=== PATIENT | male | born 1940 | race Caucasian/White ===

== ENCOUNTER 2018-08-14 21:44 | Inpatient (IN) | payer OTHER, MEDICARE ==
[~2018-08-14] VITALS: Ht 175.3 cm; Wt 120.5 kg
[~2018-08-14 21:44] MED LIST: HYDACE5 PO; LO-DOSE ASPIRIN81 MG PO
[2018-08-14 22:38] LABS: BASOPHILS ABSOLUTE AUTO 0.04 K/mm3 (0.00-0.23); BASOPHILS PERCENT AUTO 1 % (0-2); EOSINOPHILS ABSOLUTE AUTO 0.09 K/mm3 (0.00-0.68); EOSINOPHILS PERCENT AUTO 2 % (0-6); Hematocrit 50.3 % (37.0-53.0); Hemoglobin 15.6 g/dL (13.5-17.5); IMMATURE GRAN ABSOLUTE AUTO 0.02 K/mm3 (0.00-0.10); IMMATURE GRAN PERCENT AUTO 0 % (0-1); LYMPHOCYTES ABSOLUTE AUTO 1.85 K/mm3 (0.84-5.20); LYMPHOCYTES PERCENT AUTO 30 % (21-46); MONOCYTES ABSOLUTE AUTO 0.37 K/mm3 (0.16-1.47); MONOCYTES PERCENT AUTO 6 % (4-13); Mean Corpuscular HGB 28.1 pg (26.0-34.0); Mean Corpuscular Volume 91 fL (80-100); NEUTROPHILS ABSOLUTE AUTO 3.71 K/mm3 (1.96-9.15); NEUTROPHILS PERCENT AUTO 61 % (41-73); Platelet Count 227 K/mm3 (150-400); RDW Coefficient Variation 15.6 % (11.7-14.2); RDW Standard Deviation 52.4 fL (35.1-46.3); Red Blood Cell Count 5.55 M/mm3 (4.30-5.90); White Blood Cell Count 6.08 K/mm3 (4.00-11.30)
[2018-08-14 23:02] LABS: Albumin, Blood 3.9 g/dL (3.4-5.0); Albumin/Globulin Ratio 1.1 (0.8-1.8); Bilirubin, Total 0.3 mg/dL (0.1-1.0); Bun/Creatinine Ratio 18.6 (12.0-20.0); Calcium, Blood 8.8 mg/dL (8.5-10.1); Creatinine, Blood 1.29 mg/dL (0.60-1.20); Globulin, Blood 3.7 g/dL (2.2-4.0); Potassium, Blood 3.9 mmol/L (3.5-5.5); Total Protein, Blood 7.6 g/dL (6.4-8.2); Troponin I 0.032 ng/mL (0.000-0.040)
[2018-08-15 07:21] LABS: Source, Urine Clean Catch
[2018-08-15 07:33] LABS: Appearance, Urine Clear (Clear); Bilirubin, Urine Neg (Neg); Blood, Urine Neg (Neg); Color, Urine Yellow (P-Yellow); Glucose Qualitative, Urine Neg (Neg); Ketones, Urine 1+ (Neg); Leukocyte Esterase, Urine Neg (Neg); Nitrite, Urine Neg (Neg); Protein, Urine 1+ (Neg); Specific Gravity, Urine 1.015 (1.003-1.022); Urobilinogen, Urine NORM (Normal)
[2018-08-15 07:57] LABS: U Amphetamine Screen Not Detected; U Barbituate Screen Not Detected; U Benzodiazapine Screen Not Detected; U Buprenorphine Screen Not Detected; U Cannabinoids Screen Not Detected; U Cocaine Screen Not Detected; U Methadone Screen Not Detected; U Methamphetamine Screen Not Detected; U Opiates Screen Not Detected; U Oxycodone Screen Not Detected; U Phencyclidine Screen Not Detected; U Propoxyphene Screen Not Detected
[2018-08-15 08:04] LABS: Hematocrit 50.7 % (37.0-53.0); Hemoglobin 16.2 g/dL (13.5-17.5); Mean Corpuscular HGB 28.6 pg (26.0-34.0); Mean Corpuscular Volume 89 fL (80-100); Platelet Count 238 K/mm3 (150-400); RDW Coefficient Variation 15.5 % (11.7-14.2); RDW Standard Deviation 50.8 fL (35.1-46.3); Red Blood Cell Count 5.67 M/mm3 (4.30-5.90); White Blood Cell Count 6.26 K/mm3 (4.00-11.30)
[2018-08-15 08:07] LABS: Red Blood Cells, Urine 0-2 /hpf (0-2); Squamous Epithelial Cells Few /hpf (Few)
[2018-08-15 08:08] LABS: CPK Creatine Kinase 155 U/L (39-308); Troponin I 0.021 ng/mL (0.000-0.040)
[2018-08-15 08:08] LABS: Bacteria Rare /hpf
[2018-08-15 08:41] LABS: Anion Gap 12 mmol/L (6-16); Blood Urea Nitrogen 19 mg/dL (8-24); CO2, Blood 20 mmol/L (21-32); Calcium, Blood 8.8 mg/dL (8.5-10.1); Chloride, Blood 113 mmol/L (98-108); Glomerular Filtration Rate >60 (60-); Glucose, Blood 94 mg/dL (70-99); Sodium, Blood 145 mmol/L (136-145)
[2018-08-15 08:42] LABS: Alanine Aminotransfer (ALT/SGP 22 U/L (12-78); Albumin, Blood 3.8 g/dL (3.4-5.0); Alk Phos 60 U/L (50-136); Aspartate Aminotrans (AST/SGOT 18 U/L (12-37); Bilirubin, Total 0.5 mg/dL (0.1-1.0); Globulin, Blood 3.8 g/dL (2.2-4.0); Total Protein, Blood 7.6 g/dL (6.4-8.2)
--- NOTE | 2018-08-15 10:08 | NUR ---
PATIENT ARRIVED TO ICU ROOM 7 AT 1008 VIA FLOOR BED FROM ED, REPORT WAS CALLED BY DELMI BUTTS, PRIOR TO TRANSFER, PATIENT IS ALERT AND ORIENTED, ABLE TO AMBULATE FROM FLOOR BED TO ICU BED, REPORTED NO SOB, PLACED ON MONITOR, DENIES PAIN, AFEBRILE, LUNG SOUNDS ARE DIMINISHED WITH CRACKLES THROUGHOUT, NSR, BLOOD PRESSURE AT 170'S TO 180'S, HYDRALAZINE WAS GIVEN ORDERED, BILATERAL LE EDEMA NOTED, PEDAL PULSES PRESENT AND PALPABLE, BT'S PRESENT IN ALL FOUR QUADRANTS, PATIENT VOIDS WITHOUT PROBLEMS, USES URINAL, PATIENT AND FAMILY MEMBER ORIENTED TO ROOM AND NEW ENVIRONMENT, CALL LIGHT EXPLAINED, REQUIRED FORMS EXPLAINED AND WERE SIGNED BY PATIENT, DR. JIMÉNEZ IN TO SEE PATIENT, CALL LIGHT IN REACH, WILL CONTINUE TO MONITOR.
--- NOTE | 2018-08-15 12:07 | NUR ---
PATIENT AND HIS BROTHER STATED THAT THEY ARE BOTH ON THE "KETO DIET", PATIENT RECEIVED WRITTEN EDUCATIONAL MATERIALS ON HEART FAILURE AND EATING PLANS FOR HEART FAILURE PATIENTS, PATIENT CONTINUES TO REST COMFORTABLY, CALL LIGHT IN REACH, WILL CONTINUE TO MONITOR.
--- NOTE | 2018-08-15 15:16 | NUR ---
PATIENT RETURNED TO BED AFTER BEING UP IN CHAIR FOR SEVERAL HOURS, PATIENT STATED "I DID NOT SLEEP ALL NIGHT AND I AM STARTING TO DOZE OFF", CALL LIGHT IN REACH, WILL CONTINUE TO MONITOR.
--- NOTE | 2018-08-15 16:01 | NUR ---
PATIENT'S BLOOD PRESSURE 212/117 MAP 160, DR. JIMÉNEZ NOTIFIED, NEW ORDERS RECEIVED.
--- NOTE | 2018-08-15 17:36 | NUR ---
SHIFT SUMMARY NOTE: PATIENT ARRIVED TO ICU ROOM 7 FROM ED ON A FLOOR BED AT 10:08, ABLE TO AMBULATE TO ICU BED WITH SBA, ALERT AND ORIENTED, LUNGS SOUNDS TIGHT AND CRACKLES NOTED, NSR WITH POSSIBLE FIRST DEGREE HB AND BBB, BLOOD PRESSURES HIGH, IN 200'S/100'S WITH MAP'S OF 160, DR. JIMÉNEZ WAS NOTIFIED AND HYDRALAZINE AND METOPROLOL ORDERS WERE CHANGED TO FREQUENCY AND DOSAGE INCREASE, PATIENT IS ALSO ON BUMEX TID, GOOD URINE OUTPUT, CLEAR YELLOW URINE, USES URINAL AND STANDS AT BEDSIDE INDEPENDENTLY, BOWEL TONES HYPOACTIVE IN ALL FOUR QUADRANTS, PATIENT STATED THAT HE AND HIS BROTHER ARE "ON THE KETO DIET", SODIUM AT HIGHER END OF SCALE, PER DR. BRUSH HAVE PATIENT DRINK 2L OF WATER DAILY, PATIENT IS MAKING GOOD EFFORT AND DOES NOT NEED ENCOURAGEMENT TO DRINK, PATIENT WAS SITTING IN CHAIR FOR SEVERAL HOURS, STATES THAT HE "FEELS BETTER" AND HIS BREATHING HAS IMPROVED, ON 1L NC AT THIS TIME, ON A CARDIAC/HEART HEALTHY DIET, ATE ONLY A SMALL AMOUNT OF LUNCH, EATING DINNER WITH GOOD APPETITE, CALL LIGHT IN REACH, WILL CONTINUE TO MONITOR AND GIVE REPORT TO ONCOMING KICK PRESS SETTER, FOR DETAILS SEE SHIFT ASSESSMENT DOCUMENTATION AND NURSES NOTES.
[2018-08-15 17:37] LABS: Anion Gap 8 mmol/L (6-16); Blood Urea Nitrogen 17 mg/dL (8-24); CO2, Blood 27 mmol/L (21-32); Chloride, Blood 106 mmol/L (98-108); Glomerular Filtration Rate >60 (60-); Glucose, Blood 111 mg/dL (70-99); Potassium, Blood 3.8 mmol/L (3.5-5.5); Sodium, Blood 141 mmol/L (136-145)
--- NOTE | 2018-08-15 19:56 | NUR ---
PT RESTING IN BED WATCHING TV. DENIES PAIN, CP, PRESSURE, N/V, AND SOB. NO REQUESTS. CALL LIGHT IN REACH. PT USES URINAL INDEP AND MOVES SELF IN BED. NO SIGN OF DISTRESS. SEE ASSESSMENT.
--- NOTE | 2018-08-15 21:00 | NUR ---
ASSUMED CARE REPORT AND ASSESSMENT COMPLETED. PT CURRENTLY WITHOUT COMPLAINT OF SOB, CP OR ANY PAIN. O2 VIA NC AT 1L, PT WORKING ON PO WATER INTAKE. VSS, ECG SHOWS SR W/ O2 SATS 95%. PLAN TO ENCOURAGE PO WATER INTAKE AND VERIFY NPO P MIDNIGHT STATUS FOR POSSIBLE ANGIO IN AM.
[2018-08-16 04:24] LABS: Anion Gap 7 mmol/L (6-16); Blood Urea Nitrogen 20 mg/dL (8-24); Bun/Creatinine Ratio 16.5 (12.0-20.0); CO2, Blood 28 mmol/L (21-32); Calcium, Blood 8.8 mg/dL (8.5-10.1); Chloride, Blood 107 mmol/L (98-108); Creatinine, Blood 1.21 mg/dL (0.60-1.20); Glomerular Filtration Rate >60 (60-); Glucose, Blood 101 mg/dL (70-99); Potassium, Blood 3.6 mmol/L (3.5-5.5); Sodium, Blood 142 mmol/L (136-145)
--- NOTE | 2018-08-16 06:13 | NUR ---
DR BRUSH HERE DR UPDATED, NO EVENTS OVERNIGHT, LABS REVIEWED. ORDER FOR 40MEQ KCL PO NOW, HOLD 0830 DOSE AND RESUME NORMAL DOSING AT 1230.
--- NOTE | 2018-08-16 06:41 | NUR ---
SHIFT SUMMARY NO ACUTE EVENTS OVERNIGHT. PT HAS DENIED CP OR SOB FOR SHIFT AND REPORTS FEELING "MUCH BETTER." DR BRUSH IN, PO KCL GIVEN AND PT NPO EXCEPT FOR MEDS WITH PLANS TO GO TO [facility] [facility] THIS AFTERNOON. PT IS AWARE OF PLANS FOR [employer] AND HAS HEART FAILURE INFORMATION AT BEDSIDE. VSS, ECG REMAINS SR W/ FIRST DEGREE AND O2 SATS >95% ON 1-2 L/NC.
--- NOTE | 2018-08-16 11:21 | NUR ---
ANGIOGRAM STAFF FROM [facility] HERE TO TRANSFER PT TO ANGIOGRAM. PT RETURNED TO BED. UNDERWEAR OFF. FAMILY AWARE OF PT LEAVING EARLY. THEY WILL CHECK BACK IN ABOUT 2 HOURS. CONTINUE POT.
--- NOTE | 2018-08-16 11:27 | NUR ---
Patient is sitting on a chair with brother, Calvin, bedside. Patient explains about the events that have led up to this day and that he is scheduled for an angiogram at 1400. Patient showed no signs of emotional/spiritual distress. Patient instead is thankful for being alive, for his leeann and for his family. I explored patient's belief system, provided emotional support, provided pastoral job placement counselor and provided prayer. Patient responded well and showed signs of an elevated mood. I continue to remain available to patient and family.
--- NOTE | 2018-08-16 13:53 | NUR ---
POST ANGIOGRAM PT RETURNED FROM [facility]. BEDSIDE REPORT COMPLETED. PT ALERT AND TALKING. BP ELEVATED. LUNCH WAS SAVED FOR HIM. EATING CURRENTLY. RIGHT RADIAL TR BAND ON. CMS TO RIGHT FINGERS WNL. PT DENIED PAIN OR DISCOMFORT. CONTINUE POT.
--- NOTE | 2018-08-16 14:46 | NUR ---
[facility] GIV[facility] TO NOE AWAD. PT TRANSFERED VIA W/C AFTER EATING LUNCH. PT AGREEABLE TO MOVE. RIGHT TR BAND INTACT. CMS WNL. VSS. CONTINUE POT.
--- NOTE | 2018-08-16 14:50 | NUR ---
PT ARRIVED TO UNIT FROM ICU. VSS. TR BAND TO RUE INTACT. ARMBOARD TO RUE. PULSE OX TO R INDEX FINGER SHOWING 95% ON RA W/HR OF 75.
--- NOTE | 2018-08-16 18:29 | NUR ---
RELEASED 2ML OF AIR FROM TR BAND.
--- NOTE | 2018-08-16 18:30 | NUR ---
SUMMARY PT ARRIVED TO UNIT FROM ICU S/P ANGIO W/TR BAND IN PLACE. VSS. PT HAS DENIED PAIN, N/V OR SOB. AMBULATED TO RESTROOM W/SBA. REMOVED 2 ML OF AIR FROM TR BAND AT 1830. MONITORING FOR CHANGES. PT PLEASANT AND COOPERATIVE. USES CALL LIGHT APPROPRIATELY.
--- NOTE | 2018-08-16 20:00 | NUR ---
ASSUMED CARE PT CARE ASSUMED AT APPROXIMATELY 1930. PT IS AOX4 AND VERY PLEASANT. R RADIAL SITE WITH TR BAND IN PLACE INFLATED WITH 8 REMAINING ML OF AIR. SCANT AMOUNT OF DRY, RED DRAINAGE NOTED UNDER TR BAND. NO BRUISING, HEMATOMA OR SWELLING NOTED, PT DENIES PAIN ON PALPATION. CAPILLARY REFILL WNL. 2 ML AIR REMOVED FROM TR BAND WITH NO CHANGE TO SITE. PT EDUCATED ON DECREASED WRIST MOBILITY AND TO CALL FOR ANY OOZING OR BLEEDING FROM SITE. LUNG SOUNDS CLEAR IN UPPER LOBES WITH DIMINISHED BASES, PT DENIES ANY DYSPNEA OR CHEST PAIN. WILL CONTINUE TO MONITOR AND ASSESS. BED IN LOW POSITION, CALL LIGHT IN REACH.
--- NOTE | 2018-08-16 22:00 | NUR ---
TR BAND REMOVED TR BAND COMPLETELY DEFLATED AT APPROXIMATELY 2100. BAND REMOVED AND CLEAR TEGADERM DRESSIN PLACED AT 2200. NO OOZING, BRUISING, HEMATOMA OR SWELLING NOTED. PT DENIES PAIN ON PALPATION OF ARM AND AROUND SITE. CAP REFILL REMAINS WNL. ARM BOARD REPLACED TO R WRIST AND PATIENT EDUCATED ON MINIMIZING WRIST MOVEMENT. WILL CONTINUE TO MONITOR.
--- NOTE | 2018-08-16 22:18 | NUR ---
PROVIDER CONTACTED PT REPORTS DIFFICULTY SLEEPING SINCE ARRIVAL TO HOSPITAL AND REQUESTING SOMETHING TO ASSIST WITH SLEEP. MILA BERNABE CONTACTED AND ORDERS RECEIVED FOR MELATONIN 5MG PO NIGHTLY NEEDED.
[2018-08-17 04:18] LABS: Bun/Creatinine Ratio 19.2 (12.0-20.0); Calcium, Blood 9.3 mg/dL (8.5-10.1); Creatinine, Blood 1.3 mg/dL (0.60-1.20); Magnesium, Blood 2.3 mg/dL (1.6-2.4); Potassium, Blood 3.5 mmol/L (3.5-5.5)
--- NOTE | 2018-08-17 06:27 | NUR ---
SHIFT SUMMARY PT HAS REMAINED AOX4 THROUGHOUT SHIFT. VSS. PLEASANT AND COOPERATIVE WITH CARE. PT CONTINUES TO AMBULATE INDEPENDENTLY TO THE RESTROOM WITHOUT DIFFICULTY. R RADIAL SITE REMAINS WNL, PT DENIES ANY PAIN OR BLEEDING FROM SITE. NO SWELLING, PAIN OR HEMATOMA NOTED TO R AC SITE- ANN-MARIE DRESSING REMAINS IN PLACE WITH NO DRAINAGE. PT HAS DENIED PAIN OR DYSPNEA THROUGHOUT THE NIGHT. NO OTHER CHANGES FROM INITIAL ASSESSMENT. WILL CONTINUE TO MONITOR AND REPORT TO ONCOMING SHIFT RN. BED IN LOW POSITION, CALL LIGHT IN REACH.
--- NOTE | 2018-08-17 10:19 | NUR ---
Patient is lying in bed and alert with friend, Cosme, bedside. Patient is joyful and hopeful. Patient is happy that his angiogram did not turn into anything other than just exporatory. Patient is confident that medication will help smooth out his heart rate. Patient appears to have no spiritual/emotional needs at this time but enjoys the interaction centered around leeann and the goodness of [place]. I provided companionship and prayer. I will continue to remain available to patient and family.
[2018-08-17 13:56] LABS: Anion Gap 6 mmol/L (6-16); Blood Urea Nitrogen 25 mg/dL (8-24); Bun/Creatinine Ratio 20.7 (12.0-20.0); CO2, Blood 27 mmol/L (21-32); Calcium, Blood 9.3 mg/dL (8.5-10.1); Chloride, Blood 105 mmol/L (98-108); Creatinine, Blood 1.21 mg/dL (0.60-1.20); Glomerular Filtration Rate >60 (60-); Glucose, Blood 104 mg/dL (70-99); Potassium, Blood 3.8 mmol/L (3.5-5.5); Sodium, Blood 138 mmol/L (136-145)
--- NOTE | 2018-08-17 18:24 | NUR ---
SHIFT SUMMARY PT ALERT AND ORIENTED. 02 SATS >92% ON RA. HR NSR IN THE 70'S. BP HAS BEEN ELEVATED THIS EVENING. PT AMBULATES INDEPENDENTLY TO THE BATHROOM NEEDED. R RADIAL SITE REMAINS WITHIN NORMAL LIMITS. NO BLEEDING, HEMATOMA, OR PAIN AT SITE. ANN-MARIE DRESSING TO RIGHT AC FREE FROM ANY DRAINAGE OR HEMATOMA. NO OTHER CHANGES THIS SHIFT. FAMILY AT BEDSIDE. WILL CONTINUE TO MONITOR AND REPORT TO ONCOMING RN. CALL LIGHT IN REACH.
--- NOTE | 2018-08-17 21:55 | NUR ---
ASSUME CARE PATIENT INDEPENDANT IN ROOM. PATIENT ALERT AND ORIENTED X4; PLEASANT AND COOPERATIVE WITH CARE. PATIENT DENIES ANY NEEDS OR QUESTIONS REGARDING MEDICATIONS. L/S CLEAR. PATIENTS VSS ON ROOM AIR. REPORTED OFF TO MONTEZ AWAD. RIGHT RADIAL AND A/C SURGICAL SITES WNL - NO BLEEDING OR SWELLING NOTED.
--- NOTE | 2018-08-18 05:56 | NUR ---
SHIFT SUMMARY- PT HAS REMAINED AOX4 THROUGHOUT SHIFT. VSS. PLEASANT AND COOPERATIVE WITH CARE. PT CONTINUES TO AMBULATE INDENDENTLY IN ROOM WITHOUT DIFFICULTY. PT HAS DENIED CHEST PAIN OR DYSPNEA SINCE CARE ASSUMED AT APPROXIMATELY 0. PT HAS RESTED WELL THROUGHOUT MUCH OF THE NIGHT. R RADIAL AND RAC SITES REMAIN WNL WITH NO SWELLING OR BRUISING NOTED. NO OTHER CHANGES THROUGHOUT REMAINDER OF NIGHT. WILL CONTINUE TO MONITOR AND REPORT TO ONCOMING SHIFT RN. BED IN LOW POSITION, CALL LIGHT IN REACH.
[2018-08-18] MEDS ORDERED: AMLO5 PO (09:49)
[2018-08-18] MEDS ORDERED: CARV3.125 PO (09:50)
[2018-08-18] MEDS ORDERED: LISI20 PO (09:51)
[2018-08-18] MEDS ORDERED: TORSE20 PO (09:52)
[2018-08-18] MEDS ORDERED: SPIR25 PO (09:53)
--- NOTE | 2018-08-18 10:25 | NUR ---
Patient is lying in bed with many family and friends bedside. Patient is excited about being discharged this day. I provided companionship and a prayer of blessing. Patient and family responded well with manda and gratitude.
--- NOTE | 2018-08-18 12:00 | NUR ---
PT ALERT AND ORIENTED. DISCHARGE INSTRUCTIONS PROVIDED. PT EDUCATED ABOUT NEW MEDICATIONS AND PLAN OF DISCHARGE. NEW APPOINTMENTS MADE FOR PT. IV REMOVED. ALL QUESTIONS ANSWERED. PT TAKEN OUT BY WHEELCHAIR.
== END 2018-08-18 11:45 | disposition home or self-care (01) | DRG 286 ==
LOC: ER 21:44 → ERHOLD 23:52 → ICUE 23:52 → PCU 23:52 → ICUE 08-15 10:00 → PCU 08-16 14:39
PROVIDERS: Hospitalist; Internal Medicine Cardiovascular Disease; Physician Assistant; ADMIT Internal Medicine
PROC: B2111ZZ Fluoroscopy of Multiple Coronary Arteries using Low Osmolar Contrast (ICD-10-PCS; principal; 2018-08-16)
PROC: 4A023N7 Measurement of Cardiac Sampling and Pressure, Left Heart, Percutaneous Approach (ICD-10-PCS; 2018-08-16)
DX: I11.0 Hypertensive heart disease with heart failure (principal); I50.21 Acute systolic (congestive) heart failure; Z68.41 Body mass index [BMI] 40.0-44.9, adult; G45.9 Transient cerebral ischemic attack, unspecified; Z79.82 Long term (current) use of aspirin; I42.9 Cardiomyopathy, unspecified; E66.01 Morbid (severe) obesity due to excess calories; I35.0 Nonrheumatic aortic (valve) stenosis; I27.20 Pulmonary hypertension, unspecified; I16.0 Hypertensive urgency
CPT/HCPCS: 36415; 70450; 71046; 71275; 74175; 80048; 80053; 81001; 82550; 83735; 83880; 84484; 85025; 85027; 87077; 87086; 87186; 93005; 93010; 93456; 93880; 96374; 96375; 97161; 99152; 99153; 99285-25; C1769; C1887; C1894; C8929; J0360; J1644; J1650; J2250; J3010; J7030; Q9957; Q9967

== ENCOUNTER → 2020-02-06 | Outpatient (CLI) | payer OTHER, MEDICARE ==
[~2020-02-06] MED LIST changes: +AMLO5 PO; +CARV3.125 PO; +LISI20 PO; +SPIR25 PO; +TORSE20 PO
[2020-02-06 18:03] LABS: BASOPHILS ABSOLUTE AUTO 0.04 K/mm3 (0.00-0.23); BASOPHILS PERCENT AUTO 1 % (0-2); EOSINOPHILS ABSOLUTE AUTO 0.09 K/mm3 (0.00-0.68); EOSINOPHILS PERCENT AUTO 2 % (0-6); Hematocrit 42.7 % (37.0-53.0); Hemoglobin 14.1 g/dL (13.5-17.5); IMMATURE GRAN ABSOLUTE AUTO 0.01 K/mm3 (0.00-0.10); IMMATURE GRAN PERCENT AUTO 0 % (0-1); LYMPHOCYTES ABSOLUTE AUTO 2.05 K/mm3 (0.84-5.20); LYMPHOCYTES PERCENT AUTO 37 % (21-46); MONOCYTES ABSOLUTE AUTO 0.43 K/mm3 (0.16-1.47); MONOCYTES PERCENT AUTO 8 % (4-13); Mean Corpuscular HGB 28.5 pg (26.0-34.0); Mean Corpuscular Volume 86 fL (80-100); Mean Platelet Volume 9.1 fL (9.1-12.4); NEUTROPHILS ABSOLUTE AUTO 2.87 K/mm3 (1.96-9.15); NEUTROPHILS PERCENT AUTO 52 % (41-73); Platelet Count 264 K/mm3 (150-400); RDW Coefficient Variation 14.6 % (11.7-14.2); RDW Standard Deviation 45.8 fL (35.1-46.3); Red Blood Cell Count 4.95 M/mm3 (4.30-5.90); White Blood Cell Count 5.49 K/mm3 (4.00-11.30)
[2020-02-06 18:15] LABS: Albumin, Blood 3.8 g/dL (3.4-5.0); Anion Gap 8 mmol/L (6-16); Blood Urea Nitrogen 21 mg/dL (8-24); Bun/Creatinine Ratio 15.6 (12.0-20.0); CO2, Blood 28 mmol/L (21-32); Chloride, Blood 104 mmol/L (98-108); Creatinine, Blood 1.35 mg/dL (0.60-1.20); Glomerular Filtration Rate 51 (60-); Glucose, Blood 91 mg/dL (70-99); Phosphorus, Blood 3.2 mg/dL (2.5-4.9); Potassium, Blood 3.9 mmol/L (3.5-5.5); Sodium, Blood 140 mmol/L (136-145)
== END | disposition home or self-care (01) ==
LOC: LAB SHORT 17:56 → LAB EV 17:56
PROVIDERS: Internal Medicine
DX: N17.9 Acute kidney failure, unspecified (principal)
CPT/HCPCS: 36415; 80069; 85025

== ENCOUNTER 2020-05-27 10:54 | Observation (INO) | payer OTHER, MEDICARE ==
[~2020-05-27] VITALS: Ht 177.8 cm; Wt 122.5 kg
[~2020-05-27 10:54] MED LIST changes: +ASPIR 8181 MG PO; -LO-DOSE ASPIRIN81 MG PO
[2020-05-27 11:25] LABS: BASOPHILS ABSOLUTE AUTO 0.02 K/mm3 (0.00-0.23); BASOPHILS PERCENT AUTO 0 % (0-2); EOSINOPHILS ABSOLUTE AUTO 0.13 K/mm3 (0.00-0.68); EOSINOPHILS PERCENT AUTO 2 % (0-6); Hemoglobin 12.8 g/dL (13.5-17.5); IMMATURE GRAN ABSOLUTE AUTO 0.02 K/mm3 (0.00-0.10); IMMATURE GRAN PERCENT AUTO 0 % (0-1); LYMPHOCYTES ABSOLUTE AUTO 0.45 K/mm3 (0.84-5.20); LYMPHOCYTES PERCENT AUTO 7 % (21-46); MONOCYTES ABSOLUTE AUTO 0.32 K/mm3 (0.16-1.47); MONOCYTES PERCENT AUTO 5 % (4-13); Mean Corpuscular HGB 28.4 pg (26.0-34.0); Mean Corpuscular HGB Conc 31.2 g/dL (31.5-36.5); Mean Corpuscular Volume 91 fL (80-100); Mean Platelet Volume 9.1 fL (9.1-12.4); NEUTROPHILS ABSOLUTE AUTO 5.51 K/mm3 (1.96-9.15); NEUTROPHILS PERCENT AUTO 85 % (41-73); Platelet Count 196 K/mm3 (150-400); RDW Coefficient Variation 14.6 % (11.7-14.2); RDW Standard Deviation 49.1 fL (35.1-46.3); Red Blood Cell Count 4.51 M/mm3 (4.30-5.90); White Blood Cell Count 6.45 K/mm3 (4.00-11.30)
[2020-05-27 11:41] LABS: Alanine Aminotransfer (ALT/SGP 39 U/L (12-78); Albumin, Blood 3.1 g/dL (3.4-5.0); Albumin/Globulin Ratio 0.9 (0.8-1.8); Alk Phos 67 U/L (50-136); Anion Gap 4 mmol/L (6-16); Aspartate Aminotrans (AST/SGOT 35 U/L (12-37); Bilirubin, Total 0.3 mg/dL (0.1-1.0); Blood Urea Nitrogen 19 mg/dL (8-24); Bun/Creatinine Ratio 13.2 (12.0-20.0); CO2, Blood 27 mmol/L (21-32); Calcium, Blood 8.1 mg/dL (8.5-10.1); Chloride, Blood 112 mmol/L (98-108); Creatinine, Blood 1.44 mg/dL (0.60-1.20); Globulin, Blood 3.6 g/dL (2.2-4.0); Glomerular Filtration Rate 50 (60-); Glucose, Blood 207 mg/dL (70-99); Potassium, Blood 3.9 mmol/L (3.5-5.5); Sodium, Blood 143 mmol/L (136-145); Total Protein, Blood 6.7 g/dL (6.4-8.2); Troponin I <0.015 ng/mL (0.000-0.040)
[2020-05-27] MEDS ORDERED: SPIRONOLACTONE50 MG PO (13:50)
[2020-05-27] MEDS ORDERED: ATOR10 PO (13:50)
[2020-05-27] MEDS ORDERED: LOSARTAN POTASS25 M2 PO (13:51)
[2020-05-27] MEDS ORDERED: CARVEDILOL6.25 MG PO (13:51)
--- NOTE | 2020-05-27 15:17 | NUR ---
called pallative care consult via [facility]
--- NOTE | 2020-05-27 18:41 | NUR ---
A+O, sitting up watching the game, denies cp, tele sr 70, call light in reach, bed in low position, rm air, saline locked, cooperative with care, will continue to monitor and treat until share bsr with noc nurse and pt
--- NOTE | 2020-05-28 06:04 | NUR ---
SHIFT SUMMARY PATIENT ALERT AND ORIENTED. HAD NO COMPLAINTS OF CHEST PAIN OR PRESSURE. HAS BEEN INDEPENDENT IN HIS ROOM. NO SIGNS OF WEAKNESS. NO ACUTE EVENTS OVERNIGHT. IV PATENT AND FLUSHED. BED IN LOWEST POSITION WITH WHEELS LOCKED. CALL LIGHT WITHIN REACH. REPORT GIVEN TO ONCOMING RN.
--- NOTE | 2020-05-28 09:48 | NUR ---
DISCHARGE NOTE PT IS AOX4. PT IV REMOVED BY THIS RN. DC INSTRUCTIONS AND MEDICATIONS REVIEWED WITH PT WHO VERBALIZED AN UNDERSTANDING BY THIS RN. PT'S BROTHER CAME TO PICK PT UP FROM UNIT. PT DRESSED SELF IN HOME CLOTHING. PT PACKED OWN BELONGINGS AND WALKED OFF THE UNIT WITH HIS BROTHER AND THE SHIPPING AND RECEIVING SUPERVISOR AT APPROXIMATELY 0950.
== END 2020-05-28 09:47 | disposition home or self-care (01) ==
LOC: ER 10:54 → MEDS 14:06 → ENPENDDIS 05-28 09:44 → MEDS 05-28 09:47
PROVIDERS: Emergency Medicine; ADMIT Internal Medicine
DX: R55 Syncope and collapse (principal); R10.13 Epigastric pain; D64.9 Anemia, unspecified; I13.0 Hypertensive heart and chronic kidney disease with heart failure and stage 1 through stage 4 chronic kidney disease, or unspecified chronic kidney disease; N18.30 Chronic kidney disease, stage 3 unspecified; I50.42 Chronic combined systolic (congestive) and diastolic (congestive) heart failure; E66.01 Morbid (severe) obesity due to excess calories; I42.8 Other cardiomyopathies; E78.5 Hyperlipidemia, unspecified; Z66 Do not resuscitate; Z79.82 Long term (current) use of aspirin
CPT/HCPCS: 36415; 71046; 80053; 83690; 83880; 84484; 85025; 93005; 93010; 99285-25; A9270; G0378

== ENCOUNTER → 2022-04-17 | Outpatient (CLI) | payer OTHER, MEDICARE ==
[~2022-04-17] MED LIST changes: +ATOR10 PO; +CARVEDILOL6.25 MG PO; +LOSARTAN POTASS25 M2 PO; +SPIRONOLACTONE50 MG PO
[2022-04-17 17:48] LABS: Source, Urine Voided
[2022-04-17 19:00] LABS: Appearance, Urine Hazy (Clear); Bilirubin, Urine Neg (Neg); Blood, Urine Neg (Neg); Color, Urine Yellow (P-Yellow); Glucose Qualitative, Urine Neg (Neg); Ketones, Urine Neg (Neg); Leukocyte Esterase, Urine Neg (Neg); Nitrite, Urine Neg (Neg); Protein, Urine Neg (Neg); Urobilinogen, Urine NORM (Normal)
[2022-04-17 19:25] LABS: Red Blood Cells, Urine 0-2 /hpf (0-2)
[2022-04-17 19:26] LABS: Bacteria Many /hpf; Squamous Epithelial Cells Rare /hpf (Few)
== END | disposition home or self-care (01) ==
LOC: LAB SHORT 12:00
PROVIDERS: Family Medicine
DX: N50.819 Testicular pain, unspecified (principal)
CPT/HCPCS: 81001; 87086

== ENCOUNTER → 2022-05-01 | Outpatient (CLI) | payer MEDICARE | END | disposition home or self-care (01) | LOC: LAB 16:57 → LAB SHORT 16:57 | DX: R30.0 Dysuria (principal) | CPT/HCPCS: 87086 ==

== ENCOUNTER → 2022-05-02 | Outpatient (CLI) | payer MEDICARE ==
[2022-05-02 12:48] LABS: BASOPHILS ABSOLUTE AUTO 0.05 K/mm3 (0.00-0.23); BASOPHILS PERCENT AUTO 1 % (0-2); EOSINOPHILS ABSOLUTE AUTO 0.07 K/mm3 (0.00-0.68); EOSINOPHILS PERCENT AUTO 1 % (0-6); Hemoglobin 14.5 g/dL (13.5-17.5); IMMATURE GRAN ABSOLUTE AUTO 0.01 K/mm3 (0.00-0.10); IMMATURE GRAN PERCENT AUTO 0 % (0-1); LYMPHOCYTES ABSOLUTE AUTO 1.28 K/mm3 (0.84-5.20); LYMPHOCYTES PERCENT AUTO 24 % (21-46); MONOCYTES ABSOLUTE AUTO 0.32 K/mm3 (0.16-1.47); MONOCYTES PERCENT AUTO 6 % (4-13); Mean Corpuscular HGB 29.1 pg (26.0-34.0); Mean Corpuscular Volume 88 fL (80-100); Mean Platelet Volume 9.4 fL (9.1-12.4); NEUTROPHILS ABSOLUTE AUTO 3.54 K/mm3 (1.96-9.15); NEUTROPHILS PERCENT AUTO 67 % (41-73); Platelet Count 281 K/mm3 (150-400); RDW Coefficient Variation 13.9 % (11.7-14.2); RDW Standard Deviation 45.3 fL (35.1-46.3); Red Blood Cell Count 4.98 M/mm3 (4.30-5.90); White Blood Cell Count 5.27 K/mm3 (4.00-11.30)
[2022-05-02 13:42] LABS: Albumin, Blood 3.9 g/dL (3.4-5.0); Albumin/Globulin Ratio 1.1 (0.8-1.8); Bilirubin, Total 0.5 mg/dL (0.1-1.0); Bun/Creatinine Ratio 12.4 (12.0-20.0); Calcium, Blood 9.6 mg/dL (8.5-10.1); Creatinine, Blood 1.45 mg/dL (0.60-1.20); Globulin, Blood 3.7 g/dL (2.2-4.0); Total Protein, Blood 7.6 g/dL (6.4-8.2)
== END | disposition home or self-care (01) ==
LOC: LAB 11:29 → LAB SHORT 11:29
PROVIDERS: Physician Assistant
DX: R10.9 Unspecified abdominal pain (principal)
CPT/HCPCS: 80053; 83690; 85025

== ENCOUNTER 2023-05-22 13:56 | Day surgery (SDC) | payer OTHER, MEDICARE ==
[~2023-05-22] VITALS: Ht 177.8 cm; Wt 117.2 kg
[~2023-05-22 13:56] MED LIST changes: +Atropine Sulfate 0.1 MG/ML 10ML SYR ONE; +Glycopyrrolate 0.2 MG/ML 1MLVIAL ONE; +Lactated Ringer's 1,000 ML IV ONE; +Lidocaine 2% 5 ML SDV ONE; +Lidocaine HCl/Pf 1% 5 ML VIAL ONE; +Methylene Blue 1% 100 MG/10 ML VIAL ONE; +Ondansetron HCl 2 MG / ML 2ML Vial ONE; +TRAM50 PO; +Vitamin D1000 UNI1 PO; +ePHEDrine Sulfate 50 MG/ML 1ML Injection ONE
[2023-05-22] MEDS ORDERED: propofoL 50 ML IV ONE ×2 (14:37)
[2023-05-22] MEDS ORDERED: Lactated Ringer's 1,000 ML IV ONE (15:08)
[2023-05-22 16:59] VITALS: BP 92/60
== END 2023-05-22 16:59 | disposition home or self-care (01) ==
LOC: ORSCSDS 13:56
PROVIDERS: Internal Medicine Gastroenterology
PROC: 0DBN8ZX Excision of Sigmoid Colon, Via Natural or Artificial Opening Endoscopic, Diagnostic (ICD-10-PCS; principal; 2023-05-22 15:15)
PROC: 0DBK8ZX Excision of Ascending Colon, Via Natural or Artificial Opening Endoscopic, Diagnostic (ICD-10-PCS; principal; 2023-05-22 15:15)
PROC: 0DBP8ZX Excision of Rectum, Via Natural or Artificial Opening Endoscopic, Diagnostic (ICD-10-PCS; principal; 2023-05-22 15:15)
PROC: 0DBL8ZX Excision of Transverse Colon, Via Natural or Artificial Opening Endoscopic, Diagnostic (ICD-10-PCS; principal; 2023-05-22 15:15)
DX: Z12.11 Encounter for screening for malignant neoplasm of colon (principal); D12.2 Benign neoplasm of ascending colon; D12.3 Benign neoplasm of transverse colon; K63.5 Polyp of colon; K62.1 Rectal polyp; K64.4 Residual hemorrhoidal skin tags; J44.9 Chronic obstructive pulmonary disease, unspecified; I12.9 Hypertensive chronic kidney disease with stage 1 through stage 4 chronic kidney disease, or unspecified chronic kidney disease; N18.30 Chronic kidney disease, stage 3 unspecified; I42.9 Cardiomyopathy, unspecified; Z79.82 Long term (current) use of aspirin; Z79.899 Other long term (current) drug therapy
CPT/HCPCS: 88305; J0461; J2001; J2405; J2704; J7120; Q9968